=== PATIENT | female | born 1980 | race Caucasian/White ===

== ENCOUNTER 2019-10-20 12:31 | Outpatient (CLI) | payer OTHER, SELFPAY ==
--- NOTE | ~2019-10-20 | CT_ITS ---
EXAMINATION: CT abdomen pelvis w con EXAM DATE: 10/20/2019 13:17 INDICATION: Low abdominal pain, right lower quadrant tenderness. TECHNIQUE: Spiral CT of the abdomen and pelvis was performed following intravenous injection of 100 m L Omnipaque 350. Axial, coronal and sagittal images were reviewed. The dose-length product (DLP) fo r this examination was 393.05 mGy-cm. The exposure was tailored according to patient size (auto mA e xposure control), and iterative reconstruction (ASIR) was used as additional dose reduction technique . There is no prior study for comparison. FINDINGS: The liver, spleen, adrenal glands and pancreas are unremarkable. Gallbladder is unremarkab le. No biliary obstruction. Portal and splenic veins are patent. Kidneys enhance symmetrically. T here is no hydronephrosis. Fibroid uterus. The bladder is unremarkable. There is no retroperitone al or pelvic lymphadenopathy. The appendix is dilated, measuring 10 mm in diameter with adjacent inflammation. It does not appear f luid-filled or obstructed but appearance is suspicious for acute uncomplicated appendicitis. The stom ach and small bowel are unremarkable. There is expected amount of colonic stool. No free intraperi toneal gas. The heart is normal in size. There are no pericardial or pleural effusions. The lung bases are unremarkable. The bones are unremarkable. IMPRESSION: 1. Probable acute uncomplicated appendicitis. 2. Fibroids. Reviewed, dictated and finalized at location B. OUSE WORKER
== END 2019-10-20 12:32 | disposition home or self-care (01) ==
LOC: ANHIMG 12:38
PROVIDERS: PCP Physician Assistant; Visit Provider Physician Assistant
DX: R10.31 Right lower quadrant pain (principal); R93.5 Abnormal findings on diagnostic imaging of other abdominal regions, including retroperitoneum
CPT/HCPCS: 74177; Q9967

== ENCOUNTER 2019-10-20 14:05 | Day surgery (SDC) | payer OTHER, SELFPAY ==
[2019-10-20] VITALS (14 sets, daily range): BP systolic 100–143; BP diastolic 59–90; PULSE 64–99; RESP 12–20; TEMP 36.2–37; O2SAT 97–100; BMI 28.0
--- NOTE | 2019-10-20 14:45 | ED.ABDPAIN ---
HPI - Abdominal Pain General Chief Complaint: Abdominal Pain Stated Complaint: Appendicititis, CT Complete Time Seen by Provider: 10/20/19 14:31 Source: patient and RN notes reviewed Mode of arrival: ambulatory Limitations: no limitations History of Present Illness HPI narrative: Pt is a 39 y/o female who presents to the ED with c/o RLQ pain starting yesterday morning. She notes that she woke up yesterday morning with pain in her rt lower ABD. Pt states that her pain became aggravated after trying to walk at the gym later that morning. She notes that she then developed a pins and needles feeling throughout her body yesterday afternoon, stating that she felt as though she may have the flu. Pt states that her RLQ has been very tender to the touch, and notes that coughing seems to aggravate her pain. She notes that she was seen by her PCP, ANGEL Thao, earlier today for her symptoms, and states that she received a CT scan, which showed uncomplicated appendicitis. Pt denies any back pain, dysuria, diarrhea, fever, or vomiting. MD elicited complaint: abdominal pain Onset (ago): day(s) (1) Pain Consistency: colicky Location: RLQ Radiation: none Exacerbating factors: other (cough; palpation of her ABD) Associated symptoms: other (tingling sensation throughout body) Related Data Home Medications Medication Instructions Recorded Confirmed ergocalciferol (vitamin D2) 50,000 unit PO WEEKLY 08/27/19 08/28/19 [Vitamin D2] Allergies Allergy/AdvReac Type Severity Reaction Status Date / Time No Known Allergies Allergy Verified 08/28/19 16:01 Review of Systems Review of Systems: Narrative: CONSTITUTIONAL: Denies fever, chills, or sweats. Reports tingling sensation throughout body. RESPIRATORY: Denies cough or dyspnea. GASTROINTESTINAL: Reports RLQ pain. Denies nausea, vomiting, or diarrhea. GENITOURINARY: Denies dysuria or hematuria. SKIN: Denies rash or itching. MUSCULOSKELETAL: Denies back pain, joint pain, or myalgia. All systems reviewed & are unremarkable except as noted in HPI and below PMFSH Past Medical History Medical History (Updated 10/20/19 @ 15:48 by Ese Winters MD) Anxiety Colitis History of rectal polyps Renal stones Uterine fibroid Surgical History Surgical History (Updated 10/20/19 @ 14:56 by Everett Lawrence) H/O colonoscopy Hx of section Social History Social History Smoking status: Never smoker Gender identity (if verbalized by the patient): Female Comments PCP is ANGEL Thao. Exam Narrative: Exam Narrative: GENERAL: Well-appearing, well-nourished, and in no acute distress. HEAD: Normocephalic, atraumatic. EYES: PERRLA and EOMI. ENT: Nares clear, no rhinorrhea or epistaxis. Mucous membranes moist. NECK: Supple. CHEST: Clear to auscultation. No respiratory distress. HEART: Regular rate and rhythm. No murmur heard. Normal peripheral pulses. ABDOMEN: Soft, nondistended, normal active bowel sounds. McBurney's point tenderness. +RLQ tenderness. EXTREMITIES: Normal range of motion. No edema. SKIN: Warm, dry, no rash. NEURO: No focal deficits. Alert and oriented. Course Vital Signs Vital signs: Vital Signs Temperature 36.7 C 10/20/19 14:06 Pulse Rate 79 10/20/19 14:06 Respiratory Rate 12 10/20/19 14:06 Blood Pressure 140/89 10/20/19 14:06 Pulse Oximetry 100 10/20/19 14:06 Temperature 36.7 C 10/20/19 14:06 Pulse Rate 79 10/20/19 14:06 Respiratory Rate 12 10/20/19 14:06 Blood Pressure 140/89 10/20/19 14:06 Pulse Oximetry 100 10/20/19 14:06 MDM - Abdominal Pain MDM Narrative Medical decision making narrative: Pt presents for RLQ abdominal pain. Diagnosed with acute appendicitis on outpatient CT scan, came to the ER was given IV fluids and Zosyn. She has been n.p.o. throughout the entire day. She is awaiting evaluation by Dr. Abraham with general surgery who is present in the
[2019-10-20 14:50] LABS: Basophils Percent Auto 0.2 % (0.2-1.2); Eosinophils Absolute Auto 0.1 K/mm3 (0-0.3); Eosinophils Percent Auto 0.7 % (0-4.4); Hematocrit 44.3 % (37.0-47.0); Hemoglobin 14.3 g/dL (12.0-15.0); Immature Granulocyte Absolute 0.02 K/mm3 (0.00-0.031); Immature Granulocyte Percent A 0.2 % (0-0.5); Lymphocytes Absolute Auto 2.48 K/mm3 (0.9-3.2); Lymphocytes Percent Auto 27.3 % (18.3-44.2); Mean Corpuscular HGB Conc 32.3 g/dl (32-36); Mean Corpuscular Volume 89.9 fl (80-100); Mean Platelet Volume 11.2 fl (7.4-10.4); Monocytes Absolute Auto 0.5 K/mm3 (0.1-0.6); Monocytes Percent Auto 5.9 % (2.6-8.5); Neutrophils Percent Auto 65.7 % (45.5-73.1); Platelet Count Result 264 k/mm3 (150-375); Red Blood Count 4.93 M/mm3 (4.2-5.4); Red Cell Distribution Width 12.5 % (11.5-14.5); White Blood Count 9.1 K/mm3 (4.5-10.0)
[2019-10-20 15:04] LABS: Alanine Aminotransferase 20 U/L (4-35); Alkaline Phosphatase 76 U/L (38-126); Aspartate Amino Transferase 27 U/L (14-36); Bilirubin,Total 0.7 mg/dL (0.2-1.3); Blood Urea Nitrogen 9 mg/dL (7-17); Calcium 9.4 mg/dL (8.4-10.2); Carbon Dioxide 22 mmol/L (22-30); Chloride 100 mmol/L (98-107); Estimated CRCL calculation 91 ml/min; Estimated Glomerular Filt Rate > 60; Glucose 60 mg/dL (65-105); Lipase 103 U/L (23-300); Potassium 3.5 mmol/L (3.4-5.0); Sodium 139 mmol/L (137-145)
[2019-10-20] MEDS: SODIUM CHLORIDE 0.9% IV 1,000 ML 999 ML IV CONT (15:25)
[2019-10-20 15:54] LABS: Beta HCG Quantitative < 2.39 mIU/ML
--- NOTE | 2019-10-20 16:15 | WPDANESEPPF ---
Anes - Initial Pre Proc Eval Procedure: Operation Date: 10/20/19 17:00 Proposed Procedures p Laparoscopic Appendectomy - Anton Abraham MD Date/Time: 10/20/19 16:15 Pre Op Diagnosis: Appendicititis, CT Complete Patient Data Age: 39 Gender: F Height: 1.63 m Weight: 70 kg Last Vital Signs Temp 36.7 C 10/20/19 14:06 Pulse 79 10/20/19 14:06 Resp 12 10/20/19 14:06 BP 140/89 10/20/19 14:06 Pulse Ox 100 10/20/19 14:06 Allergies Allergy/AdvReac Type Severity Reaction Status Date / Time No Known Allergies Allergy Verified 08/28/19 16:01 Home Medications Medication Instructions Recorded Confirmed Type ergocalciferol (vitamin D2) 50,000 unit PO WEEKLY 08/27/19 08/28/19 History [Vitamin D2] Laboratory Tests 10/20/19 10/20/19 10/20/19 14:44 14:44 14:44 WBC 9.1 K/mm3 K/mm3 (4.5-10.0) RBC 4.93 M/mm3 M/mm3 (4.2-5.4) Hgb 14.3 g/dL g/dL (12.0-15.0) Hct 44.3 % % (37.0-47.0) MCV 89.9 fl fl (80-100) MCH 29.0 pg pg (26-34) MCHC 32.3 g/dl g/dl (32-36) RDW 12.5 % % (11.5-14.5) Plt Count 264 k/mm3 k/mm3 (150-375) MPV 11.2 fl H fl (7.4-10.4) Immature Gran % (Auto) 0.2 % % (0-0.5) Neut % (Auto) 65.7 % % (45.5-73.1) Lymph % (Auto) 27.3 % % (18.3-44.2) [place] % (Auto) 5.9 % % (2.6-8.5) Eos % (Auto) 0.7 % % (0-4.4) Baso % (Auto) 0.2 % % (0.2-1.2) Lymph # (Auto) 2.48 K/mm3 K/mm3 (0.9-3.2) [place] # (Auto) 0.5 K/mm3 K/mm3 (0.1-0.6) Eos # (Auto) 0.1 K/mm3 K/mm3 (0-0.3) Baso # (Auto) 0.0 K/mm3 K/mm3 (0.0-0.1) Abs Immat Gran (auto) 0.02 K/mm3 K/mm3 (0.00-0.031) Absolute Neuts (auto) 6.0 K/mm3 K/mm3 (1.3-6.7) Absolute Nucleated RBC 0.0 K/mm3 K/mm3 (0.0-0.012) Nucleated RBC % 0.0 % % (0.0-0.2) Sodium 139 mmol/L mmol/L (137-145) Potassium 3.5 mmol/L mmol/L (3.4-5.0) Chloride 100 mmol/L mmol/L (98-107) Carbon Dioxide 22 mmol/L mmol/L (22-30) BUN 9 mg/dL mg/dL (7-17) Creatinine 0.60 mg/dL L mg/dL (0.7-1.0) Estim Creat Clear Calc 91 ml/min ml/min Estimated GFR > 60 (59 - ) Glucose 60 mg/dL L mg/dL (65-105) Calcium 9.4 mg/dL mg/dL (8.4-10.2) Total Bilirubin 0.7 mg/dL mg/dL (0.2-1.3) AST 27 U/L U/L (14-36) ALT 20 U/L U/L (4-35) Alkaline Phosphatase 76 U/L U/L (38-126) Total Protein 9.0 g/dL H g/dL (6.3-8.2) Albumin 5.0 g/dL g/dL (3.5-5.1) Lipase 103 U/L U/L (23-300) Beta HCG, Quant < 2.39 mIU/ML mIU/ML [facility] Past Medical History Medical History (Updated 10/20/19 @ 15:48 by Ese Winters MD) Anxiety Colitis History of rectal polyps Renal stones Uterine fibroid Surgical History Surgical History (Updated 10/20/19 @ 14:56 by Everett Lawrence) H/O colonoscopy Hx of section Social History Social History Smoking status: Never smoker Gender identity (if verbalized by the patient): Female Anes - Eval Final PreProcedure Day of Procedure 10/20/19 16:15 Patient weight: overweight Heart: regular rate and rhythm Lungs: clear to auscultation and normal air movement Airway: Mallampati scale class II Neurological: alert and oriented Last oral intake: >/= 8 hours ASA classification: II Emergent: yes Anesthetic plan: proceed Anesthesia type and monitoring: general ETT Informed Consent: The patient's anesthetic plan and its attendant risks and benefits were discussed with the patient/family/POA. Questions were solicited and answers provided to the satisfaction of the patient/family/POA.
--- NOTE | 2019-10-20 16:28 | PM.IMHP ---
H&P: HPI History of Present Illness Chief complaint: Appendicititis, CT Complete Narrative: Claritza Ventura is a 39 year old female who states that she was in her normal state of health until yesterday morning when she woke up with fairly sharp lower midline and right lower quadrant abdominal pain. She thought she might have to have a bowel movement and got up and did so. Pain did not get better. She went to work out and was on the treadmill but the pain still was not getting better so she quit after 5 minutes and came back home. She took 2 Advil is a and then slept for about an hour. She then continued to have lower abdominal pain on and off through the rest the day yesterday. She did not take anymore Advil. However, she did have loss of appetite and was able to sleep last night but again this morning woke up with fairly sharp pain. She had pain to the touch in the right lower quadrant when examined at her PCPs office this morning. Therefore, she was sent for a CT scan of the abdomen and pelvis which showed a dilated appendix to 10 mm and surrounding inflammatory change. No other specific abnormalities mention. She was therefore asked to come to the emergency room where she had a CBC which was unremarkable but noted to have right lower quadrant pain by the ER physician. Therefore, I was called for consultation. See plan below. Review of Systems Constitutional: Constitutional: Reports as per HPI and Denies headache(s) Eyes: Eyes: Denies loss of vision and Denies eye pain ENT: Reports Normal hearing present, Denies change in voice, Denies dizziness and Denies headache(s) Cardiovascular: Cardiovascular: Denies chest pain and Denies dyspnea Respiratory: Respiratory: Denies dyspnea and Denies wheezing Gastrointestinal: Gastrointestinal: Reports abdominal pain Genitourinary: Genitourinary: Denies urinary frequency Comments: Patient had left-sided kidney stones in August of 2019. She required a cystoscopy with stone removal and stent placement. The stent has since been removed so it is no longer present. Musculoskeletal: Musculoskeletal: Denies back pain and Denies arthralgias Neurologic: Reports Normal hearing present, Denies dizziness, Denies headache(s), Denies loss of vision and Denies memory loss Psychiatric: Psychiatric: Denies memory loss and Denies panic attacks Endocrine: Endocrine: Reports no additional endocrine complaints Hematologic/Lymphatic: Hematologic/Lymphatic: Reports no additional hematologic/lymphatic complaints Allergic/Immunologic: Allergic/Immunologic: Denies wheezing PMFSH Past Medical History Medical History (Updated 10/20/19 @ 15:48 by Ese Winters MD) Anxiety Colitis History of rectal polyps Renal stones Uterine fibroid Surgical History Surgical History (Updated 10/20/19 @ 16:31 by Anton Abraham MD) H/O colonoscopy Hx of section Status post cystoscopy with ureteral stent placement Social History Social History Smoking status: Never smoker Gender identity (if verbalized by the patient): Female Meds Home Medications and Allergies Home Medications Medication Instructions Recorded Confirmed Type ergocalciferol (vitamin D2) 50,000 unit PO WEEKLY 08/27/19 08/28/19 History [Vitamin D2] Allergies Allergy/AdvReac Type Severity Reaction Status Date / Time No Known Allergies Allergy Verified 08/28/19 16:01 Vital Signs Vital Signs - 24 hr 10/20/19 14:06 Temperature 36.7 C Pulse Rate 79 Respiratory Rate 12 Blood Pressure 140/89 Pulse Oximetry 100 Exam Const: General: cooperative, no acute distress, well developed, alert and awake Nutritional Appearance: well nourished Orientation/consciousness: patient oriented x3 Limitations: no limitations HENMT: Head: normal to inspection, normocephalic and atraumatic Ears: hearing grossly normal bilaterally General nose exam: Normal
[2019-10-20] MEDS: LACTATED RINGERS 1,000 ML 30 ML IV CONT ×2 (16:30→18:05)
[2019-10-20] MEDS: LACTATED RINGERS 1,000 ML 999 ML IV CONT (16:35)
[2019-10-20] MEDS: BUPIVACAINE/EPINEPHRINE 0.5% 30 ML VIAL 15 ML INFILTRATE (17:35)
--- NOTE | 2019-10-20 17:54 | PM.PROC ---
Procedure Note - Detailed Date of procedure: 10/20/19 Pre-op diagnosis: Appendicititis, CT Complete Post-op diagnosis: other (Acute appendicitis without perforation or abscess) Procedure performed: Laparoscopic Appendectomy Description of procedure: The patient was seen again in the Holding Room. The risks, benefits, complications, treatment options, and expected outcomes were discussed with the patient and/or family. The possibilities of reaction to medication, pulmonary aspiration, perforation of viscus, bleeding, recurrent infection, finding a normal appendix, the need for additional procedures, failure to diagnose a condition, and creating a complication requiring transfusion or operation were discussed. There was concurrence with the proposed plan and informed consent was obtained. The site of surgery was properly noted/marked. The patient was taken to Operating Room, and a time out was preformed which identified this as the proper patient, and the procedure verified as laparoscopic appendectomy, possible open. The patient was placed in the supine position and general anesthesia was induced, along with placement of orogastric tube, SCD hose, and a Castro catheter. The abdomen was prepped and draped in a sterile fashion. A 5 mm umbilical incision was made and the peritoneal cavity was accessed using the Veress needle technique. Once the abdomen was insufflated to 14 mmHg pressure a 5 mm XL trocar over the 0? 5 mm scope was carefully twisted into the abdomen via the umbilicus. The pneumoperitoneum was then established to steady pressure of 14 mm Hg. A 12 mm laparoscopic port was placed through a transverse suprapubic incision. An additional 5 mm cannula was then placed in left upper quadrant under direct vision. A careful evaluation of the entire abdomen was carried out. The patient was placed in Trendelenburg and left lateral decubitus position. The small intestines were retracted in the cephalad and left lateral direction away from the pelvis and right lower quadrant. The patient was found to have an enlarged and inflamed appendix that was extending [into the right side of the pelvis. There was no evidence of perforation. The appendix was carefully dissected. Once it was free a 45 mm ethicon endogastroentestinal stapler with a vascular load was placed across the mesoappendix. This was fired and hemostasis was checked along the staple line and appeared to be adequate. For this patient, this divided the entire mesoappendix and we were able to proceed immediately to stapling off the appendix at it's junction with the cecum. The appendix was then divided at its base using the same 45 mm stapler with a 3.5 mm bowel wall load. Minimal appendiceal stump was left in place. There was no evidence of bleeding, leakage, or complication after division of the appendix at its junction with the cecum.. The appendix was then placed in an endobag which had been brought through the 12 mm suprapubic port site. The appendix and the bag were then extracted through this larger port site in the suprapubic position. The suprapubic port site was closed using a #1 Polysorb suture passed with a Aubrey-Loo cone and needle suture passer at the level of the fascia. The trocar site skin wounds were closed using 4-0 undyed Monocryl and surgical glue. Instrument, sponge, and needle counts were correct at the conclusion of the case. Patient tolerated the procedure well and was taken the recovery room in good condition. Anesthesia: GETA Surgeon: Anton Abraham MD Plastic Production Machine Setter: LINDA Olson, OR 1st assist Estimated blood loss (mL): 5 Drains: No Packing: No Pathology: yes (Appendix) Complications: No immediate complications Condition: stable Disposition: PACU Findings: There was no sign of perforation. The distal half of the appendix appeared to be swollen and somewhat injected.
[2019-10-20] MEDS: ONDANSETRON INJ 4 MG/2 ML VIAL IV PUSH (19:13)
--- NOTE | 2019-10-20 20:15 | SUR.PHASEII ---
2010: Patient stated, I don't feel well enough to go home and I would like to stay at least overnight. RN contacted the housekeeper/laundry assistant to get admission orders from Dr. Abraham as well as a bed.
[2019-10-20] MEDS: SCOPOLAMINE 1.5 MG PATCH TRANSDERM (20:51)
[2019-10-20] MEDS: HYDROMORPHONE HCL 1 MG/ML INJ 0.25 MG IV PUSH (20:53)
--- NOTE | 2019-10-20 21:00 | SUR.PHASEII ---
2039: RN faxed report to 3 med surg and is waiting for orders from Dr. Abraham to be admitted. Patient will be going to Rm: [phone] 2044: RN called Dr. Wasserman because patient was experiencing nausea/vomiting especially with movement. When patient got sick her pain in her abdomen also increased. Dr. Wasserman said to apply a scop patch and go ahead and give the dilaudid since it wasn't given in PACU. RN will continue to monitor.
--- NOTE | 2019-10-20 21:37 | ADMGEN ---
This patient, Claritza Ventura, was admitted to [facility] Surg Room 309-01 at 2125. Patient/family oriented to hospital policies and general routines including ID bracelet, bed and alarms, visiting hours, pain management, procedures, bathroom and other care routines, personal items, smoking policy, room service/diet, and visiting hours. Valuables list has been completed. Information on how to activate the Rapid Response Team has been discussed. Patient/Family are encouraged to report perceived risks to care and to ask questions if they do not understand what they are told or what they should do.
[2019-10-20] MEDS: LACTATED RINGERS 1,000 ML 100 ML IV CONT (21:54)
[2019-10-21 02:00] VITALS: BP 102/57; PULSE 77; RESP 20; TEMP 36.7; O2SAT 98
[2019-10-21] MEDS: ACETAMINOPHEN 500 MG TABLET PO (02:08)
[2019-10-21 06:00] VITALS: BP 102/57; PULSE 72; RESP 20; TEMP 36.7; O2SAT 100
[2019-10-21 06:40] LABS: Hematocrit 36.4 % (37.0-47.0); Hemoglobin 11.8 g/dL (12.0-15.0); Mean Corpuscular HGB Conc 32.4 g/dl (32-36); Mean Corpuscular Hemoglobin 29.4 pg (26-34); Mean Corpuscular Volume 90.5 fl (80-100); Mean Platelet Volume 11.1 fl (7.4-10.4); Platelet Count Result 252 k/mm3 (150-375); Red Blood Count 4.02 M/mm3 (4.2-5.4); Red Cell Distribution Width 12.3 % (11.5-14.5); White Blood Count 8.2 K/mm3 (4.5-10.0)
[2019-10-21 06:49] LABS: Blood Urea Nitrogen 4 mg/dL (7-17); Calcium 8.9 mg/dL (8.4-10.2); Carbon Dioxide 20 mmol/L (22-30); Chloride 102 mmol/L (98-107); Estimated CRCL calculation 104 ml/min; Estimated Glomerular Filt Rate > 60; Glucose 109 mg/dL (65-105); Potassium 4.4 mmol/L (3.4-5.0); Sodium 136 mmol/L (137-145)
[2019-10-21 08:00] VITALS: PULSE 64; RESP 18; O2SAT 100
[2019-10-21 08:26] VITALS: BP 98/64; PULSE 64; RESP 18; TEMP 36.6; O2SAT 100
--- NOTE | 2019-10-21 10:36 | PM.PNGS ---
Progress Note: A&P Assessment and Plan (1) Acute appendicitis: Qualifiers: Acute appendicitis type: other Qualified Code(s): K35.890 - Other acute appendicitis without perforation or gangrene Code(s): K35.80 - Unspecified acute appendicitis Status: Acute Assessment and Plan: Patient doing well post-op day 1. Tolerating activity and tolerating current diet. Did advance her to a soft/regular diet for lunch and if she tolerates this then she can be discharged. I discussed this with the nurse and the patient. Discussed all d/c care instructions with the patient and questions were answered. F/u in [address] Abraham. Aleshia shower, do not submerge in water. No heavy lifting more than 15-20 pounds x 2 weeks. Take tylenol and ibuprofen as needed as directed for the first 2 days then as needed. I did send a script for a few [place] to the pharmacy that should only be taken as prescribed on an as needed basis. Subjective Subjective Date/Time Seen: 10/21/19 10:36 Post Op day: 1 (lap appy) Patient reports: no new complaints, tolerating liquids well, no flatus and no bowel movement Interval history: Patient seen and examined. Reports feeling sore in her lower abdomen. Tolerating clear liquids and full liquids but has not had solid food yet. Tolerating activity and walking around. Denies nausea or vomiting. Reports feeling somewhat bloated. No other complaints at this time. The patient did not feel the [place] helped much with the pain last night but she felt that she was drowsy and wanted to try to take the medication again this morning when I was at the bedside. Review of Systems Review of Systems: All systems reviewed & are unremarkable except as noted in HPI and below Exam Const: General: comfortable, no acute distress, alert and awake Orientation/consciousness: patient oriented x3 Resp: Effort & Inspection: normal respiratory effort Auscultation: clear to auscultation bilaterally Cardio: Rate: regular rate Rhythm: regular rhythm Heart sounds: S1 normal heart sound present and S2 normal heart sound present GI: Inspection: non-distended and incision (Abdominal incisions healing as expected. Clean/dry/intact.) GI Palp: Yes Soft to palpation, Yes Tenderness to palpation present (GI) (lower abdominal tenderness and incisional), No Guarding due to palpation present (GI) and No Rebound tenderness present Auscultation: normal bowel sounds Neuro: General: moves all extremities Cranial nerves: Yes CN's II-XII intact bilaterally Speech: normal speech Extrem: General: no calf tenderness and no edema Psych: Mental Status: mental status grossly normal Attitude: cooperative Thought process: Normal thought process present Thought content: Yes Normal thought content present Objective Data Vital Signs Vital Signs: Vital Signs - 24 hr 10/20/19 14:06 10/20/19 16:35 10/20/19 18:05 Temperature 36.7 C 37.0 C 36.2 C L Pulse Rate 79 84 99 Respiratory Rate 12 16 14 Blood Pressure 140/89 143/72 H 135/84 Pulse Oximetry 100 99 100 10/20/19 18:20 10/20/19 18:35 10/20/19 18:49 Temperature Pulse Rate 84 64 79 Respiratory Rate 16 16 20 Blood Pressure 142/90 H 125/78 119/69 Pulse Oximetry 98 100 100 10/20/19 19:10 10/20/19 19:40 10/20/19 20:10 Temperature Pulse Rate 79 73 69 Respiratory Rate Blood Pressure 138/82 110/59 L 107/64 Pulse Oximetry 10/20/19 20:40 10/20/19 21:15 10/20/19 21:30 Temperature 36.8 C 36.6 C Pulse Rate 84 74 76 Respiratory Rate 20 20 Blood Pressure 116/67 120/80 100/63 Pulse Oximetry 99 99 10/20/19 22:00 10/20/19 23:44 10/21/19 02:00 Temperature 36.6 C 36.9 C 36.7 C Pulse Rate 81 92 77 Respiratory Rate 20 16 20 Blood Pressure 106/72 101/61 102/57 L Pulse Oximetry 99 97 98 10/21/19 06:00 10/21/19 08:00 10/21/19 08:26 Temperature 36.7 C 36.6 C Pulse Rate 72 64 64 Respiratory Rate 20 18 18 Blood Pressure 102/57 L 98/64 L Pulse Oximetry 100 100 100
[2019-10-21 12:00] VITALS: BP 97/69; PULSE 62; RESP 16; TEMP 36.7; O2SAT 100
--- NOTE | 2019-10-21 14:05 | WPDANESPN ---
Anes - Prog Note Post-Op Date/Time: 10/21/19 14:05 Cardiovascular status: normal Respiratory status: normal Airway patency: baseline Mental status: baseline Post-Op hydration status: normal Vital Signs: Last Vital Signs Temp 36.7 C 10/21/19 12:00 Pulse 62 10/21/19 12:00 Resp 16 10/21/19 12:00 BP 97/69 L 10/21/19 12:00 Pulse Ox 100 10/21/19 12:00 I/O: Intake & Output 10/20/19 10/21/19 10/21/19 23:59 07:59 15:59 Intake Total 1750 420 180 Output Total 1800 Balance 1750 -1380 180 Laboratory Tests 10/21/19 05:47 10/21/19 05:47 10/20/19 10/20/19 10/20/19 14:44 14:44 14:44 WBC 9.1 RBC 4.93 Hgb 14.3 Hct 44.3 MCV 89.9 MCH 29.0 MCHC 32.3 RDW 12.5 Plt Count 264 MPV 11.2 H Immature Gran % (Auto) 0.2 Neut % (Auto) 65.7 Lymph % (Auto) 27.3 [place] % (Auto) 5.9 Eos % (Auto) 0.7 Baso % (Auto) 0.2 Lymph # (Auto) 2.48 [place] # (Auto) 0.5 Eos # (Auto) 0.1 Baso # (Auto) 0.0 Abs Immat Gran (auto) 0.02 Absolute Neuts (auto) 6.0 Absolute Nucleated RBC 0.0 Nucleated RBC % 0.0 Sodium 139 Potassium 3.5 Chloride 100 Carbon Dioxide 22 BUN 9 Creatinine 0.60 L Estim Creat Clear Calc 91 Estimated GFR > 60 Glucose 60 L Calcium 9.4 Total Bilirubin 0.7 AST 27 ALT 20 Alkaline Phosphatase 76 Total Protein 9.0 H Albumin 5.0 Lipase 103 Beta HCG, Quant < 2.39 10/21/19 10/21/19 05:47 05:47 WBC 8.2 RBC 4.02 L Hgb 11.8 L Hct 36.4 L MCV 90.5 MCH 29.4 MCHC 32.4 RDW 12.3 Plt Count 252 MPV 11.1 H Immature Gran % (Auto) Neut % (Auto) Lymph % (Auto) [place] % (Auto) Eos % (Auto) Baso % (Auto) Lymph # (Auto) [place] # (Auto) Eos # (Auto) Baso # (Auto) Abs Immat Gran (auto) Absolute Neuts (auto) Absolute Nucleated RBC Nucleated RBC % Sodium 136 L Potassium 4.4 Chloride 102 Carbon Dioxide 20 L BUN 4 L D Creatinine 0.60 L Estim Creat Clear Calc 104 Estimated GFR > 60 Glucose 109 H Calcium 8.9 Total Bilirubin AST ALT Alkaline Phosphatase Total Protein Albumin Lipase Beta HCG, Quant Post-procedural complaints: none Patient Feedback: Patient satisfied with anesthetic care.
== END 2019-10-21 14:40 | disposition home or self-care (01) ==
LOC: ANHED 15:54 → ANHSURGERY 16:33 → ANH3MEDSUR 20:41
PROVIDERS: Emergency Provider Emergency Medicine; PCP Physician Assistant; Visit Provider Surgery
PROC: 0DTJ4ZZ Resection of Appendix, Percutaneous Endoscopic Approach (ICD-10-PCS; CPT 44970; principal; 2019-10-20 17:00)
DX: K35.30 Acute appendicitis with localized peritonitis, without perforation or gangrene (principal)
CPT/HCPCS: 44970; 36415; 80048; 80053; 83690; 84702; 85025; 85027; 88304; 96365; 99285; A9270; J0330; J1100; J1170; J1200; J2250; J2405; J2543; J2704; J3010; J7030; J7120

== ENCOUNTER → 2021-05-12 09:08 | Outpatient (CLI) | payer OTHER, SELFPAY ==
[2021-05-12 20:11] LABS: SARS-CoV-2 RNA PCR Negative
== END ==
PROVIDERS: PCP Physician Assistant; Visit Provider Physician Assistant
DX: R09.81 Nasal congestion (principal); Z20.822 Contact with and (suspected) exposure to COVID-19
CPT/HCPCS: C9803; U0003; U0005

== ENCOUNTER 2022-07-25 00:44 | Day surgery (SDC) | payer BC, SELFPAY ==
--- NOTE | 2022-07-12 11:54 | PC.NURSE ---
Message left on voicemail to return call for upcoming colonoscopy.
[2022-07-17 14:44] VITALS: BMI 31.0
--- NOTE | 2022-07-24 17:13 | P.HP_ITS ---
History of Present Illness History of Present Illness Consent: Risks, benefits, and alternatives have been discussed and questions answered. Patient agrees to proceed with procedure. Chief complaint: hx of colon polyps Narrative: Claritza Ventura is a 41 year old female with a personal history and family history of polyps. She had a polyp removed about fiber 6 years ago in [place]. Both her parents and other relatives have had polyps as well Review of Systems Review of Systems: All systems reviewed & are unremarkable except as noted in HPI and below PMFSH Past Medical History Medical History Anxiety Colitis History of rectal polyps Renal stones Uterine fibroid Surgical History Surgical History H/O colonoscopy Hx of section Status post cystoscopy with ureteral stent placement Family History Family History Father Hypertension Hypothyroid Mother Hypertension Hypothyroid Social History Social History Smoking status: Never smoker Alcohol intake: current Drinks per week: 1 Substance use: never Living arrangements: with family Gender identity (if verbalized by the patient): Female Spiritual care concerns: No Meds Home Medications and Allergies Home Medications Medication Instructions Recorded Confirmed Type cetirizine 10 mg tablet (Zyrtec) 10 mg PO DAILY PRN Allergy Symptoms 07/25/22 07/25/22 History Allergies Allergy/AdvReac Type Severity Reaction Status Date / Time No Known Allergies Allergy Verified 07/25/22 09:21 Exam Const: General: alert Orientation/consciousness: patient oriented x3 Resp: Auscultation: clear to auscultation bilaterally Cardio: Rhythm: regular rhythm GI: GI Palp: Yes Soft to palpation and No Tenderness to palpation present (GI) Neuro: General: patient oriented x3 Assessment and Plan Assessment and plan (1) Colon cancer screening: Code(s): Z12.11 - Encounter for screening for malignant neoplasm of colon Status: Acute Assessment and Plan: Colonoscopy with possible biopsy or polypectomy or cautery or injection of substances.
[2022-07-25 09:22] VITALS: BP 120/84; PULSE 74; RESP 16; TEMP 36.5; O2SAT 100
[2022-07-25] MEDS: LACTATED RINGERS 1,000 ML 150 ML IV CONT (09:25)
--- NOTE | 2022-07-25 09:42 | P.PNAN_ITS ---
Anes - Initial Pre Proc Eval Procedure: Operation Date: 07/25/22 10:30 Proposed Procedures p Screening Colonoscopy - Jesus Osuna MD Date/Time: 07/25/22 09:42 Surgeon: Jesus Osuna MD Pre Op Diagnosis: hx of colon polyps Patient Data Age: 41 Gender: F Height: 1.63 m Weight: 81.1 kg Last Vital Signs Temp 97.7 F 07/25/22 09:22 Pulse 74 07/25/22 09:22 Resp 16 07/25/22 09:22 BP 120/84 07/25/22 09:22 Pulse Ox 100 07/25/22 09:22 O2 Del Method Room Air 07/25/22 09:22 Allergies Allergy/AdvReac Type Severity Reaction Status Date / Time No Known Allergies Allergy Verified 07/25/22 09:21 Home Medications Medication Instructions Recorded Confirmed Type cetirizine 10 mg tablet (Zyrtec) 10 mg PO DAILY PRN Allergy Symptoms 07/25/22 07/25/22 History Patient hx anesthesia problems: none Family hx anesthesia problems: none Results Review: All pre-operative results and documents have been reviewed as part of the pre- operative evaluation. [facility] Past Medical History Medical History (Updated 07/24/22 @ 17:14 by Jesus Osuna MD) Anxiety Colitis History of rectal polyps Renal stones Uterine fibroid Surgical History Surgical History H/O colonoscopy Hx of section Status post cystoscopy with ureteral stent placement Family History Family History Father Hypertension Hypothyroid Mother Hypertension Hypothyroid Social History Social History Smoking status: Never smoker Alcohol intake: current Drinks per week: 1 Substance use: never Living arrangements: with family Gender identity (if verbalized by the patient): Female Spiritual care concerns: No Anes - Eval Final PreProcedure Day of Procedure 07/25/22 09:42 Patient weight: normal Heart: regular rate and rhythm Lungs: clear to auscultation Airway: Mallampati scale class II Neurological: alert and oriented Last oral intake: >/= 8 hours ASA classification: II Emergent: no Anesthetic plan: proceed Anesthesia type and monitoring: general GIVS and standard monitoring Results Review: All pre-operative results and documents have been reviewed as part of the pre- operative evaluation. Informed Consent: The patient's anesthetic plan and its attendant risks and benefits were d iscussed with the patient/family/POA. Questions were solicited and answers provided to the satisfaction of the patient/family/POA.
[2022-07-25 10:47] VITALS: BP 90/54; PULSE 75; RESP 21; O2SAT 100
[2022-07-25 10:57] VITALS: BP 114/70; PULSE 69; RESP 20; O2SAT 100
[2022-07-25 11:07] VITALS: BP 106/77; PULSE 64; RESP 20; O2SAT 100
== END 2022-07-25 11:16 | disposition home or self-care (01) ==
PROVIDERS: PCP Physician Assistant; Visit Provider Internal Medicine Gastroenterology
PROC: 0DJD8ZZ Inspection of Lower Intestinal Tract, Via Natural or Artificial Opening Endoscopic (ICD-10-PCS; CPT 45378; principal; 2022-07-25 10:30)
DX: Z12.11 Encounter for screening for malignant neoplasm of colon (principal); Z86.010 Personal history of colon polyps; Z83.71 Family history of colonic polyps
CPT/HCPCS: 45378; J2704; J7120

== ENCOUNTER 2024-09-17 12:50 | Outpatient (CLI) | payer OTHER, SELFPAY ==
--- NOTE | ~2024-09-17 | MR_ITS ---
EXAMINATION: MR abdomen wo/w con DATE: 09/17/2024 13:41 INDICATION: Renal mass TECHNIQUE: Magnetic resonance imaging (MRI) of the abdomen was performed without and with 15 mL Multi maximiliano intravenous contrast. Sequences included coronal T2-weighted SS-FSE, coronal and axial FS 2D-F IESTA, axial STIR FSE, axial T2-weighted SS-FSE, axial T2-weighted FS SS-FSE, axial diffusion-weighte d SE, axial dual-echo T1-weighted FSPGR, and axial and coronal T1-weighted LAVA. Postcontrast axial T 1-weighted LAVA images were obtained in a time course. Postcontrast coronal T1-weighted LAVA images w ere obtained. COMPARISON: CT dated 10/1205/12/2020 FINDINGS: Heart size is normal. No pericardial or pleural effusion. Diffuse hepatic steatosis. Gallbladder, spl een, pancreas, right kidney and bilateral adrenal glands are normal. There is a 2.3 x 1.9 cm T2 hyper intense cystic lesion at the interpolar region of the right kidney. There is an 11 x 5 mm nodular reg ion with smooth margins projecting into the posterior superior aspect of the cystic lesion. The nodul ar region is isointense to the renal medulla on all sequences including postcontrast images. Visualiz ed portions of bowels are unremarkable. No pathologically enlarged abdominal or upper pelvic lymphade nopathy. Bones are unremarkable with normal marrow signal throughout. IMPRESSION: 1. 11 x 5 mm nodular region of enhancing soft tissue at the periphery of a 2.3 x 1.9 cm cystic lesion at the interpolar region of the right kidney. This could represent solid enhancing component of a cy stic renal cell carcinoma which coincidentally follows the signal and enhancement characteristics of the renal medulla. Alternatively this could represent an irregularly shaped simple cyst resulting in artifactual appearance of a solid component within the cystic lesion. Reviewed, dictated and finalized at location B. [employer] IMPRESSION: 1. 11 x 5 mm nodular region of enhancing soft tissue at the periphery of a 2.3 x 1.9 cm cystic lesion at the interpolar region of the right kidney. This could represent solid enhancing component of a cystic renal cell carcinoma which coi ncidentally follows the signal and enhancement characteristics of the renal med alvaro. Alternatively this could represent an irregularly shaped simple cyst resu lting in artifactual appearance of a solid component within the cystic lesion.
== END 2024-09-17 12:51 | disposition home or self-care (01) ==
LOC: MICIMG 12:52
PROVIDERS: PCP Physician Assistant; Visit Provider Physician Assistant
DX: N28.89 Other specified disorders of kidney and ureter (principal)
CPT/HCPCS: 74183; A9577